=== PATIENT | female | born 1945 | race Caucasian/White ===

== ENCOUNTER 2023-05-25 04:34 | Day surgery (SDC) | payer OTHER, BC ==
[2023-05-20 08:52] VITALS: BMI 26.4
[2023-05-25 09:28] VITALS: BP 130/55; PULSE 82; RESP 19; TEMP 98.2
== END 2023-05-25 09:28 | disposition home or self-care (01) ==
LOC: JASU-ENDO 04:34
PROVIDERS: ATTEND Internal Medicine Gastroenterology
PROC: 0DJD8ZZ Inspection of Lower Intestinal Tract, Via Natural or Artificial Opening Endoscopic (ICD-10-PCS; principal; 2023-05-25 08:00)
DX: Z51.11 Encounter for antineoplastic chemotherapy (principal); Z86.010 Personal history of colon polyps; K57.30 Diverticulosis of large intestine without perforation or abscess without bleeding; K63.89 Other specified diseases of intestine